=== PATIENT | female | born 1985 | race Caucasian/White ===

== ENCOUNTER 2017-10-21 00:30 | Emergency (ER) | payer OTHER, BC ==
[~2017-10-21] VITALS: Ht 180.3 cm; Wt 95.3 kg
[2017-10-21 00:49] VITALS: BP 140/91
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
== END 2017-10-21 01:40 | disposition home or self-care (01) ==
LOC: ER 00:30
DX: S80.01XA Contusion of right knee, initial encounter (principal); S80.12XA Contusion of left lower leg, initial encounter; V49.9XXA Car occupant (driver) (passenger) injured in unspecified traffic accident, initial encounter; Y93.89 Activity, other specified; Y92.89 Other specified places as the place of occurrence of the external cause; Y99.8 Other external cause status
CPT/HCPCS: 73562; 99284

== ENCOUNTER 2017-12-12 18:43 | Emergency (ER) | payer BC, OTHER ==
[~2017-12-12] VITALS: Ht 180.3 cm; Wt 95.3 kg
[2017-12-12 19:05] VITALS: BP 120/70
[2017-12-12 20:33] LABS: BACTERIA,URINE 0 /HPF (0-FEW); BILIRUBIN,URINE NEG (NEG); CLARITY,URINE CLEAR; COLOR,URINE STRAW; GLUCOSE,URINE NEG (NEG); NITRITE,URINE NEG (NEG); UROBILINOGEN,URINE 0.2 mg/dL (0.2 mg/dL)
[2017-12-12 20:34] LABS: SQUAMOUS EPITHELIAL CELL,UR MOD /LPF
--- NOTE | 2017-12-12 20:47 | PHYS DOC ---
Past History Past Medical History: Anxiety Past Surgical History: Alcohol Use: Occasionally Drug Use: None Adult General Chief Complaint Chief Complaint: URINARY RETENTION HPI HPI Patient is a 32-year-old female presenting with chief complaint of urinary retention she has been unable to urinate for 24 hours she is a with a C- section 2 years ago she says she sometimes feels as though her uterus is falling downward towards her vagina. She had a history of urinary urinary retention 2 months ago she said she had a Mendoza in for 24 hours she does take Benadryl to help her sleep because she works security shift supervisor but otherwise no significant medications or medical history no fever no dysuria. She did have abdominal discomfort but now that has resolved since the nursing staff history and 1 L off of her bladder Review of Systems Review of Systems Constitutional: Denies fever or chills [] Eyes: Denies change in visual acuity, redness, or eye pain [] HENT: Denies nasal congestion or sore throat [] Respiratory: Denies cough or shortness of breath [] Cardiovascular: No additional information not addressed in HPI [] GI: Denies abdominal pain, nausea, vomiting, bloody stools or diarrhea [] : Denies dysuria or hematuria [] Musculoskeletal: Denies back pain or joint pain [] Integument: Denies rash or skin lesions [] Neurologic: Denies headache, focal weakness or sensory changes [] Endocrine: Denies polyuria or polydipsia [] All other systems were reviewed and found to be within normal limits, except as documented in this note. Allergies Allergies Allergies Coded Allergies Type Severity Reaction Last Updated Verified Sulfa (Sulfonamide Antibiotics) Allergy Intermediate 12/12/17 Yes Physical Exam Physical Exam Constitutional: Well developed, well nourished, no acute distress, non-toxic appearance. [] HENT: Normocephalic, atraumatic, bilateral external ears normal, oropharynx moist, no oral exudates, nose normal. [] Eyes: PERRLA, EOMI, conjunctiva normal, no discharge. [] Neck: Normal range of motion, no tenderness, supple, no stridor. [] normal respiratory effort no increased work of breathing rash. [] Abdomen is soft nontender nondistended. Back: No tenderness, no CVA tenderness. [] Extremities: No tenderness, no cyanosis, no clubbing, ROM intact, no edema. [] Neurologic: Alert and oriented X 3, normal motor function, normal sensory function, no focal deficits noted. [] Psychologic: Affect normal, judgement normal, mood normal. [] Current Patient Data Vital Signs Vital Signs Date Time Temp Pulse Resp B/P (MAP) Pulse Ox O2 Delivery O2 Flow Rate FiO2 12/12/17 19:05 97.9 89 20 97 Room Air Lab Results Laboratory Tests Test 12/12/17 19:06 12/12/17 19:45 POC Urine HCG, Qualitative hcg negative (Negative) Urine Collection Type U cath Urine Color Straw Urine Clarity Clear Urine pH 6.0 Urine Specific [place] 1.015 Urine Protein Neg (NEG-TRACE) Urine Glucose (UA) Neg mg/dL (NEG) Urine Ketones (Stick) Neg mg/dL (NEG) Urine Blood Neg (NEG) Urine Nitrite Neg (NEG) Urine Bilirubin Neg (NEG) Urine Urobilinogen Dipstick 0.2 mg/dL (0.2 mg/dL) Urine Leukocyte Esterase Neg (NEG) Urine RBC 1-2 /HPF (0-2) Urine WBC 1-4 /HPF (0-4) Urine Squamous Epithelial Cells Mod /LPF Urine Bacteria 0 /HPF (0-FEW) EKG EKG [] Radiology/Procedures Radiology/Procedures [] Course & Med Decision Making Course & Med Decision Making Pertinent Labs and Imaging studies reviewed. (See chart for details) []32-year-old female who is presenting with urinary retention 1 L was drained off a full catheter was placed due to significant urinary retention. This may be related to anatomic features such as pelvic floor abnormality from previous deliveries. Patient was instructed to follow-up with gynecology within 2-3 days for a reevaluation. 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 No signs of a UTI. She does take Benadryl but it is only once a day it is unlikely that this is leading to significant retention. Dragon Disclaimer Dragon Disclaimer This electronic medical record was generated, in whole or in part, using a voice recognition dictation system. Departure Departure: Impression: Primary Impression: Urinary retention Disposition: HOME, SELF-CARE Condition: STABLE Patient Instructions: Urinary Retention, Acute, Female Additional Instructions: see mobile application engineer in 3-5 days LENAGHAN,SHERRY MD Dec 12, 2017 20:47
== END 2017-12-12 20:55 | disposition home or self-care (01) ==
LOC: ER 18:43
DX: R33.9 Retention of urine, unspecified (principal); F41.9 Anxiety disorder, unspecified; Z98.890 Other specified postprocedural states; Z88.2 Allergy status to sulfonamides
CPT/HCPCS: 51702; 81001; 81025; 99284-25